=== PATIENT | female | born 1995 | race Caucasian/White ===

== ENCOUNTER 2018-03-02 04:12 | Inpatient (IN) | payer MEDICAID ==
[2018-03-02 04:41] LABS: APPEARANCE,URINE TURBID; BILIRUBIN,URINE NEGATIVE (NEGATIVE); COLOR,URINE YELLOW; GLUCOSE, URINE NEGATIVE (NEGATIVE); KETONES,URINE NEGATIVE (NEGATIVE); LEUKOCYTE ESTERASE,URINE LARGE (NEGATIVE); NITRITE,URINE NEGATIVE (NEGATIVE); PROTEIN,URINE 30 mg/dL (NEGATIVE); URINE SPECIFIC GRAVITY 1.019
[2018-03-02 05:01] LABS: URINE BARBITURATES SCREEN NEGATIVE; URINE COCAINE SCREEN NEGATIVE; URINE MARIJUANA (THC) SCREEN NEGATIVE; URINE METHADONE SCREEN NEGATIVE; URINE PHENCYCLIDINE SCREEN NEGATIVE
[2018-03-02 05:08] LABS: URINE BENZODIAZEPINES SCREEN UNCONFIRMED POSITIVE
--- NOTE | 2018-03-02 06:12 | RADIOLOGY REPORT (SQ) ---
EXAM DESCRIPTION: US LIMITED COMPLETED DATE/TME: 03/02/2018 00:00 CLINICAL HISTORY: 23 years, Female, No care, contractions COMPARISON: None. TECHNIQUE: Grayscale and doppler evaluation of the fetus. Transabdominal technique was utilized. Exam was performed by an cytopathology technologist, and static images were submitted for review. LIMITATIONS: None. FINDINGS: Maternal: Ovaries: Obscured by gravid maternal uterus. Cervix: Closed and approximately 3.0 cm in length. : Number: [place]. Status: Live . Presentation: Cephalic. Heart rate: 140 bpm. PAYTON: 4.4 cm. Placenta: Position: Fundal. Complications: No previa or abruptio. Biometry: BPD: 8.56 cm = 34 weeks 4 days. HC: 30.97 cm = 34 weeks 4 days. AC: 30.77 cm = 34 weeks 5 days. FL: 6.62 cm = 34 weeks 1 days. Ratios (%): FL/AC: 21.5 (20-24). FL/BPD: 77.3 (71-87). HC/AC: 1.01 ( ). CI: 93.0 (70-86). EFW = 2448 grams (Please note that an incorrect LMP could make the percentile value inaccurate.) Clinical: LMP: Unknown. Ultrasound: MA: 34 weeks four days. IVIS: 04/09/2018. IMPRESSION: Single live intrauterine , as above. Oligohydramnios. 2010 [employer]- All Rights Reserved
[2018-03-02 07:12] LABS: ABSOLUTE EOSINOPHILS # (AUTO) 0.1 10^3/uL (0.0-0.6); ABSOLUTE LYMPHOCYTES (AUTO) 1.6 10^3/uL (0.5-4.7); ABSOLUTE MONOCYTES (AUTO) 0.7 10^3/uL (0.1-1.4); ABSOLUTE NEUT (AUTO) 7.3 10^3/uL (1.7-8.2); BASOPHILS % (AUTO) 0.4 % (0-2); HEMATOCRIT 37.1 % (36.0-47.0); HEMOGLOBIN 12.4 g/dL (12.0-15.5); LYMPHOCYTES % (AUTO) 16.7 % (13-45); MEAN CORPUSCULAR HEMOGLOBIN 27.6 pg (27.0-33.4); MEAN CORPUSCULAR HGB CONC 33.5 g/dL (32.0-36.0); MEAN CORPUSCULAR VOLUME 83 fl (80-97); MONOCYTES % (AUTO) 6.8 % (3-13); PLATELET COUNT 276 10^3/uL (150-450); RED CELL DISTRIBUTION WIDTH 18.1 % (11.5-14.0); SEGMENTED NEUTROPHILS % (AUTO) 75.1 % (42-78); TOTAL CELLS COUNTED % (AUTO) 100 %; WHITE BLOOD COUNT 9.7 10^3/uL (4.0-10.5)
[2018-03-02] MEDS ORDERED: NALBUPHINE HCL INJ 10 MG/1 ML AMPULE ONE (07:12)
--- NOTE | 2018-03-02 07:29 | L&D Progress Notes ---
PROGRESS NOTES Datetime Report Generated by CPN: 03/02/2018 07:29 PROGRESS NOTE Impression Other: contractions Procedures- Other: monitor Plan: Continue Present Management Vital Signs : Reviewed; Within Normal Limits Comment: Pt presented to the ED, complaining of contractions, unsure of her dates. Pt sent to US for dates--shows 34 weeks. Pt then thought that she had rupture of membranes--Actin Prom NEGATIVE. Pt has had no care. labs drawn, VAGINAL EXAM Dilatation: closed Effacement: thick MEMBRANES Membranes: Intact FETUS A FHR - Baseline: 120s Monitoring: External US Accelerations: 15X15 FHR Category: Category I : 34.0 SIGNATURE SIGNATURE: [id number] Signature: with User ID: [email or web address]
[2018-03-02] MEDS ORDERED: OXYTOCIN/NORMAL SALINE 20 UNIT/1,000 ML RTUINJ ONE ×2 (07:38→16:21)
[2018-03-02] MEDS ORDERED: OXYTOCIN 10 UNIT/ML VIAL ONE (07:38)
[2018-03-02] MEDS ORDERED: MISOPROSTOL 0.2 MG TABLET ONE ×2 (07:38→16:22)
[2018-03-02] MEDS ORDERED: LIDOCAINE 1% INJ-PF (10 MG/ML) 30 ML SDV ONE ×2 (07:38→09:50)
[2018-03-02] MEDS ORDERED: PENICILLIN G-K 5 MILLION UNIT VIAL ONE (07:46)
[2018-03-02 07:58] LABS: RUBELLA INTERPRETATION POSITIVE
--- NOTE | 2018-03-02 08:52 | Admission Physical ---
Datetime Report Generated by CPN: 03/02/2018 08:52 CURRENT ADMISSION Chief Complaint: Uterine Contractions Indication for Induction: Not Applicable Admit Impression : , Intrauterine ; Admit Plan: Admit to Unit; Initiate Labor Protocol ALLERGIES Medication Allergies: Yes Medication Allergies: codeine/NC/RASH (03/02/2018); ibuprofen (03/02/2018) Latex: No Latex Allergies Food Allergies: milk OBSTETRICAL HISTORY : 3 Para: 2 Term: 1 : 2 SAB: 0 IAB: 0 Livin Cesareans: 2 Hx Previous C/S: Yes Depression/PP Depression: Yes PTL/PROM: Yes Current Procedures: None SEE RECORDS Alcohol: No Marijuana : No Cocaine: No Other Illicit Drugs: No Cigarettes: Current Everyday Smoker. [id number] PHYSICAL EXAM General: Normal HEENT: Normal Neurologic: Normal Thyroid: Normal Heart: Normal Lungs: Normal Breast: Normal Back: Normal Abdomen: Normal Genitourinary Exam: Normal Extremities: Normal DTRs: Normal Pelvic Type: Adequate Vital Signs: Reviewed VAGINAL EXAM Dilatation: 8 Effacement: 100 Station: -1 Contraction Comments: irregular MEMBRANES Membranes: Ruptured FETUS A Monitoring: External US FHR- Baseline: 120s Accelerations: 15X15 Decelerations: None Admit Comment: Pt presented c/o contractions with no care. Sent to US for dating and CL reported as closed and long. She thought that her water was broken and Actin Prom Negative. Pt c/o back pain and crying. Checked cervix which was 8 cm and no amnion palpated. Pt then h/o C/S x 2. First, secondary to Breech @ 34 wks, then repeat. Consent signed for . PLANS FOR LABOR AND DELIVERY Labor and Delivery: None Pain Management: None Feeding Preference: Formula Benefit of Breast Feed Discussed: Yes INFORMED CONSENT Signature: with User ID: [email or web address]
[2018-03-02] MEDS ORDERED: MORPHINE SULFATE 10 MG/ML INJ ONE (10:24)
[2018-03-02] MEDS ORDERED: OXYTOCIN/NORMAL SALINE 20 UNIT/1,000 ML RTUINJ IV PRN (10:54)
[2018-03-02] MEDS ORDERED: MEASLES,MUMPS&RUBELLA VACC/PF 0.5 ML VIAL SUBCUT PRN (10:54)
[2018-03-02] MEDS ORDERED: ZOLPIDEM TARTRATE 5 MG TABLET PO PRN (10:54)
[2018-03-02] MEDS ORDERED: BENZOCAINE/MENTHOL AEROSOL SPRAY 56 ML TOP PRN (10:54)
[2018-03-02] MEDS ORDERED: DIPH/PERTUSS(ACELL)/TETANUS VAC/PF 0.5 ML SYR (>=10YO) IM PRN (10:54)
[2018-03-02] MEDS ORDERED: DIBUCAINE 1% OINTMENT 28 GM TP PRN (10:54)
[2018-03-02] MEDS ORDERED: MISOPROSTOL 0.1 MG TABLET PR ONE (10:59)
[2018-03-02 11:02] LABS: ARTERIAL BLOOD BASE EXCESS -5.3 mmol/L; ARTERIAL BLOOD H2CO3 1.49 mmol/L (1.05-1.35); ARTERIAL BLOOD HCO3 22.2 mmol/L (20-24); ARTERIAL BLOOD O2 SATURATION 20.7 % (94-98); ARTERIAL BLOOD PCO2 49.6 mmHg (35-45); ARTERIAL BLOOD PH 7.27 (7.35-7.45); ARTERIAL BLOOD TOTAL CO2 23.7 mmol/L (21-25)
[2018-03-02 11:03] LABS: ARTERIAL BLOOD FIO2 CORD BLOOD; ARTERIAL BLOOD PO2 17.5 mmHg (80-100)
[2018-03-02] MEDS ORDERED: BENZOCAINE/MENTHOL AEROSOL SPRAY 56 ML ONE (11:45)
[2018-03-02] MEDS ORDERED: OXYCODONE-ACETAMINOPHEN 5-325 MG TABLET ONE (12:57)
--- NOTE | 2018-03-02 14:21 | Delivery Summary ---
Del Sum A-C Datetime Report Generated by CPN: 03/02/2018 14:21 DELIVERY PERSONNEL DELIVERY PERSONNEL: [id number] Delivery Doctor:: Daniella Hirsch MD Labor and Delivery Nurse:: Joey Ariza RNphysicist nuclear Nurse:: SARY Coronado Nursery Nurse:: Rachell Gaffney RN [employer]force Business Analyst/IT INFRASTRUCTURE PROJECT MANAGER: Anne Fournier CNA II MATERNAL INFORMATION Delivery Anesthesia: Local Medications After Delivery: Pitocin Bolus-Please Comment Meds After Delivery Comment: Pitocin 20 units Estimated Blood Loss (ml): 500 ml Maternal Complications: Other Complication Details: ptd, no care Provider Comments: of a viable male at 0941 with an OA presentation; APGARS 9@1, 9@5; midline episiotomy and 2nd degree right lateral wall/sulcal lac probable IUGR, US showed 34 wks and assessed to be term LABOR SUMMARY No. Babies in Womb: 1 Attempted: Yes Labor Anesthesia: None LABOR INFORMATION Reason for Induction: Not Applicable Onset of Labor: 03/02/2018 02:00 Complete Dilatation: 03/02/2018 08:30 Oxytocin: N/A Group B Beta Strep: unknown Antibiotics # of Doses: 1 Antibiotics Time of Last Dose: 0750 Name of Antibiotic Given: Penicillin Steroids Given: None Reason Steroids Not Administered: Imminent Delivery Other Reason Not Administered: n/a MEMBRANES Membranes Rupture Method: Spontaneous Rupture of Membranes: 03/02/2018 09:00 Length of Rupture (hr): 0.68 Amniotic Fluid Color: Clear Amniotic Fluid Amount: Small Amniotic Fluid Odor: Normal STAGES OF LABOR Stage 1 hr: 6 Stage 1 min: 30 Stage 2 hr: 1 Stage 2 min: 11 Stage 3 hr: 0 Stage 3 min: 6 Total Time in Labor hr: 7 Total Time in Labor min: 47 VAGINAL DELIVERY Episiotomy: Median Laceration #1: Vaginal Laceration Extension #1: Second Degree Laceration #2: None Laceration Extension #2: Second Degree Laceration Repair: Yes Laceration Repair Note: 2-0 vicryl used to repair the episiotomy. There was 2nd degree laceration in the right vaginal lateral sulcus. Sponge Count Correct: N/A Sharps Count Correct: N/A CSECTION DELIVERY Primary Indication: N/A Secondary Indication: N/A CSection Incidence: N/A Labor: N/A Elective: N/A CSection Incision: N/A BABY A INFORMATION Infant Delivery Date/Time: 03/02/2018 09:41 Method of Delivery: Vaginal Born in Route : No : Successful Forceps: N/A Vacuum Extraction: N/A Shoulder Dystocia : No PRESENTATION/POSITION BABY A Presentation: Cephalic PLACENTA INFORMATION BABY A Placenta Delivery Time : 03/02/2018 09:47 Placenta Method of Delivery: Spontaneous Placenta Status: Delivered SCORES BABY A Heart Rate 1 min: >100 bpm Resp Effort 1 min: Good Cry Reflex Irritability 1 min: Cough or Sneeze or Pulls Away Muscle Tone 1 min: Active Motion Color 1 min: Body [place], Extremities Blue Resuscitation Effort 1 min: Tactile Stimulation SCORE 1 MIN: 9 Heart Rate 5 min: >100 bpm Resp Effort 5 min: Good Cry Reflex Irritability 5 min: Cough or Sneeze or Pulls Away Muscle Tone 5 min: Active Motion Color 5 min: Body [place], Extremities Blue Resuscitation Effort 5 min: Tactile Stimulation SCORE 5 MIN: 9 INFORMATION BABY A Infant Outcome : Liveborn Infant Condition : Stable Sex: Male IDENTIFICATION BABY A Infant Verification Date/Time: 03/02/2018 10:13 ID Band Number: [id number] Mother's Name Verified: Yes RN Verifying : Joey Oneillerman, RN and Anne Brown, CNA2 WEIGHT/LENGTH BABY A Birthweight (gm): 2280 Weight (lb): 5 Infant Weight (oz): 0 Infant Length (in): 19.00 Length (cm): 48.26 CORD INFORMATION BABY A No. Cord Vessels: 3 Nuchal Cord : N/A Cord Blood Taken: Yes-For Eval (Mom's Blood Type - or O+) Suction: None ASSESSMENT BABY A Skin to Skin: No Skin to Skin Time (min): 0 BABY B INFORMATION : N/A SIGNATURES Signature: with User ID: [email or web address]
[2018-03-02] MEDS: HYDROCODONE/ACETAMINOPHEN 5-325 MG TABLET PO PRN ×2 (15:54→20:19)
[2018-03-02 16:55] LABS: HEMATOCRIT 29.9 % (36.0-47.0); MEAN CORPUSCULAR HEMOGLOBIN 27.6 pg (27.0-33.4); MEAN CORPUSCULAR HGB CONC 33.2 g/dL (32.0-36.0); MEAN CORPUSCULAR VOLUME 83 fl (80-97); PLATELET COUNT 269 10^3/uL (150-450)
[2018-03-02 17:22] LABS: HEMOGLOBIN 9.9 g/dL (12.0-15.5); WHITE BLOOD COUNT 20.8 10^3/uL (4.0-10.5)
[2018-03-02] MEDS: DOCUSATE SODIUM 100 MG CAPSULE PO SCH (18:31)
[2018-03-02] MEDS: FERROUS SULFATE 325 MG TABLET PO SCH (18:31)
[2018-03-02] MEDS ORDERED: ACETAMINOPHEN 325 MG TABLET PO PRN (21:08)
[2018-03-02] MEDS: CEFTRIAXONE SODIUM 1,000 MG in DEXTROSE 5%-WATER 50 ML IV SCH (22:14)
[2018-03-03] MEDS: HYDROCODONE/ACETAMINOPHEN 5-325 MG TABLET PO PRN ×3 (03:45→21:01)
[2018-03-03 08:18] LABS: HEMATOCRIT 24.5 % (36.0-47.0); HEMOGLOBIN 8.1 g/dL (12.0-15.5); MEAN CORPUSCULAR HEMOGLOBIN 27.8 pg (27.0-33.4); MEAN CORPUSCULAR HGB CONC 33.2 g/dL (32.0-36.0); MEAN CORPUSCULAR VOLUME 84 fl (80-97); PLATELET COUNT 225 10^3/uL (150-450); RED BLOOD COUNT 2.93 10^6/uL (3.72-5.28); RED CELL DISTRIBUTION WIDTH 18.4 % (11.5-14.0); WHITE BLOOD COUNT 11.3 10^3/uL (4.0-10.5)
[2018-03-03 08:40] LABS: HEPATITIS C VIRUS AB <0.1 s/co ratio (0.0-0.9)
--- NOTE | 2018-03-03 09:25 | PDOC PROGRESS REPORT ---
Subjective-OB Progress Note for:: 03/03/18 Subjective: Doing well, no c/o, bottle feeding, voiding, pain improved, ambulating Physical Exam (OB) Vital Signs: Temp Pulse Resp BP Pulse Ox 98.5 F 77 18 110/61 97 03/03/18 03:48 03/03/18 03:48 03/03/18 03:48 03/03/18 03:48 03/03/18 03:48 Intake & Output 03/02/18 03/03/18 03/04/18 06:59 06:59 06:59 Intake Total 1300 Balance 1300 Weight 57.5 kg - PIH/Pre-Eclampsia Clonus: Negative Headache: Absent Epigastric Pain: No Visual Changes: No - Lochia Lochia Amount: Small 10-25 ml Lochia Color: Rubra/Red - Abdomen Description: Tender, Soft, Flat Hernia Present: No Fundal Description: Firm, Midline Fundal Height: 1/u - 2/u Objective-Diagnostic Laboratory: 03/03/18 07:57 03/02/18 03/02/18 03/03/18 09:45 16:45 07:57 WBC 20.8 H D 11.3 H RBC 3.60 L 2.93 L Hgb 9.9 L D 8.1 L Hct 29.9 L 24.5 L MCV 83 84 MCH 27.6 27.8 MCHC 33.2 33.2 RDW 18.0 H 18.4 H Plt Count 269 225 Carbonic Acid 1.49 H HCO3/H2CO3 Ratio 14:1 ABG pH 7.27 L ABG pCO2 49.6 H ABG pO2 17.5 L* ABG HCO3 22.2 ABG O2 Saturation 20.7 L ABG Base Excess -5.3 FiO2 CORD BLOOD Assessment and Plan(PN) - Assessment and Plan (1) Status post repeat low transverse section Is this a current diagnosis for this admission?: Yes - Time Spent with Patient Time with patient: Less than 15 minutes Medications reviewed and adjusted accordingly: Yes - Disposition Anticipated Discharge: Home Within: within 24 hours
[2018-03-03] MEDS: CEFTRIAXONE SODIUM 1,000 MG in DEXTROSE 5%-WATER 50 ML IV SCH ×2 (09:52→21:02)
[2018-03-03] MEDS: SENNOSIDES/DOCUSATE 8.6-50 MG 1 EACH TABLET PO SCH (09:53)
[2018-03-03] MEDS: DOCUSATE SODIUM 100 MG CAPSULE PO SCH ×2 (09:53→17:49)
[2018-03-03] MEDS: PRENATAL VITAMIN W DHA CAPSULE PO SCH (09:53)
[2018-03-03] MEDS: FERROUS SULFATE 325 MG TABLET PO SCH ×2 (09:53→17:49)
[2018-03-03 17:18] LABS: HEPATITS B SURFACE ANTIGEN Negative (Negative)
[2018-03-04] MEDS: HYDROCODONE/ACETAMINOPHEN 5-325 MG TABLET PO PRN ×3 (01:48→13:53)
--- NOTE | 2018-03-04 09:36 | PDOC PROGRESS REPORT ---
Subjective-OB Progress Note for:: 03/04/18 Subjective: Doing well, no c/o, ready to go home, has help at home, bottle feeding, depression is not a concern per pt Physical Exam (OB) Vital Signs: Temp Pulse Resp BP Pulse Ox 98.2 F 76 16 107/61 98 03/04/18 07:24 03/04/18 07:24 03/04/18 07:24 03/04/18 07:24 03/04/18 07:24 Intake & Output 03/03/18 03/04/18 03/05/18 06:59 06:59 06:59 Intake Total 1300 860 Balance 1300 860 - PIH/Pre-Eclampsia Clonus: Negative Headache: Absent Epigastric Pain: No Visual Changes: No - Lochia Lochia Amount: Scant < 10 ml Lochia Color: Rubra/Red - Abdomen Description: Tender, Soft Hernia Present: No Fundal Description: Firm, Midline Fundal Height: u/u - u/2 Objective-Diagnostic Laboratory: 03/03/18 07:57 Assessment and Plan(PN) - Assessment and Plan (1) Status post repeat low transverse section Is this a current diagnosis for this admission?: Yes - Time Spent with Patient Time with patient: Less than 15 minutes Medications reviewed and adjusted accordingly: Yes - Disposition Anticipated Discharge: Home Within: within 24 hours
--- NOTE | 2018-03-04 09:41 | PDOC DISCHARGE SUMMARY ---
Final Diagnosis Discharge Date: 03/04/18 - Final Diagnosis (1) Status post repeat low transverse section Is this a current diagnosis for this admission?: Yes Discharge Data - Discharge Medication Prescriptions: Ferrous Sulfate [Feosol 325 mg Tablet] 325 mg PO BID #60 tablet Home Medications: Pnv,Calcium 72/Iron/Folic Acid [Pnv Plus Multivit Tab] 1 each PO DAILY 01/29/16 Ferrous Sulfate [Feosol 325 mg Tablet] 325 mg PO BID #60 tablet 03/04/18 Gestational Age: 34 Reason(s) for Admission: Onset of Labor, Labor Admission Note: IUGR, poor care Procedures: Ultrasound Intrapartum Procedure(s): Spontaneous Vaginal Delivery Complication(s): Laceration-Labial, Laceration-Sulcus, Episiotomy Laceration-Degree: 2nd - Data Baby 1 Male Weight: 2.268 kg Home with Mother: No - 34 weeks Complications: Yes - Diagnosis Test Laboratory: Temp Pulse Resp BP Pulse Ox 98.2 F 76 16 107/61 98 03/04/18 07:24 03/04/18 07:24 03/04/18 07:24 03/04/18 07:24 03/04/18 07:24 03/02/18 03/02/18 03/02/18 04:25 06:45 16:45 RBC 4.50 3.60 L Hgb 12.4 9.9 L D Hct 37.1 29.9 L Urine Opiates Screen NEGATIVE 03/03/18 07:57 RBC 2.93 L Hgb 8.1 L Hct 24.5 L Urine Opiates Screen - Discharge information/Instructions Discharge Activity: Activity As Tolerated, No Lifting Over 10 Pounds, No Lifting /Push/Pulling, Pelvic Rest Discharge Diet: As Tolerated, Regular Disposition: HOME, SELF-CARE Follow up with: [facility] in: 2, Weeks
[2018-03-04] MEDS: PRENATAL VITAMIN W DHA CAPSULE PO SCH (10:22)
[2018-03-04] MEDS: DOCUSATE SODIUM 100 MG CAPSULE PO SCH (10:22)
[2018-03-04] MEDS: SENNOSIDES/DOCUSATE 8.6-50 MG 1 EACH TABLET PO SCH (10:23)
[2018-03-04] MEDS: FERROUS SULFATE 325 MG TABLET PO SCH (10:25)
[2018-03-04 12:42] VITALS: BP 116/71
[2018-03-04] MEDS: CEFTRIAXONE SODIUM 1,000 MG in DEXTROSE 5%-WATER 50 ML IV SCH (13:51)
== END 2018-03-04 17:47 | disposition home or self-care (01) | DRG 806 ==
LOC: LC 04:12 → LR 07:42 → 2S 14:00
PROVIDERS: ADMIT Obstetrics & Gynecology; ATTEND Obstetrics & Gynecology
PROC: 10E0XZZ Delivery of Products of Conception, External Approach (ICD-10-PCS; principal; 2018-03-02)
PROC: 0KQM0ZZ Repair Perineum Muscle, Open Approach (ICD-10-PCS; 2018-03-02)
PROC: 0W8NXZZ Division of Female Perineum, External Approach (ICD-10-PCS; 2018-03-02)
PROC: 3E0234Z Introduction of Serum, Toxoid and Vaccine into Muscle, Percutaneous Approach (ICD-10-PCS; 2018-03-04)
DX: O60.14X0 Preterm labor third trimester with preterm delivery third trimester, not applicable or unspecified (principal); O99.324 Drug use complicating childbirth; Z37.0 Single live birth; F15.90 Other stimulant use, unspecified, uncomplicated; O36.5930 Maternal care for other known or suspected poor fetal growth, third trimester, not applicable or unspecified; O34.211 Maternal care for low transverse scar from previous cesarean delivery; N85.8 Other specified noninflammatory disorders of uterus; O70.1 Second degree perineal laceration during delivery; O99.334 Smoking (tobacco) complicating childbirth; F17.210 Nicotine dependence, cigarettes, uncomplicated; Z3A.34 34 weeks gestation of pregnancy; Z23 Encounter for immunization
CPT/HCPCS: 36415; 76815; 80307; 81001; 82803; 84112; 85025; 85027; 86592; 86701; 86762; 86803; 86804; 86850; 86900; 86901; 87340; 88307; 90715; G0480; J0696; J2270; J2300; J2540; J2590; J3490